=== PATIENT | male | born 1950 | race Caucasian/White ===

== ENCOUNTER → 2016-10-23 | Outpatient (CLI) | payer BC ==
[2016-10-23 15:32] LABS: CHLORIDE,CL 106 mmol/L (98-110); SODIUM,NA 140 mmol/L (136-146)
== END ==
LOC: MW.CHIM 14:37
PROVIDERS: ATTEND Internal Medicine
DX: M10.9 Gout, unspecified (principal); I10 Essential (primary) hypertension
CPT/HCPCS: 36415; 80053; 80061; 84550; 85025

== ENCOUNTER 2016-11-24 11:49 | Emergency (ER) | payer BC ==
--- NOTE | 2016-11-24 12:07 | EDM.PDOC ---
ED HPI Trauma - General Chief Complaint: Upper Extremity Injury/Pain Stated Complaint: LEFT HAND Time Seen by Provider: 11/24/16 11:51 - History of Present Illness INITIAL COMMENTS - FREE TEXT/NARRATIVE: HISTORY AND PHYSICAL: History of present illness: Patient 66-year-old male she is uncertain of left wrist pain he had this for several weeks it got worse over last 1-2 days with swelling he also is maximal pain with extension of his fourth and fifth digits. He denies any direct trauma or overuse that he can recall recently. He did suffer from carpal: A right wrist. Review of systems: As per history of present illness and below otherwise all systems reviewed and negative. Past medical history: As per history of present illness and as reviewed below otherwise noncontributory. Surgical history: As per history of present illness and as reviewed below otherwise noncontributory. Social history: No reported history of drug or alcohol abuse. Family history: As per history of present illness and as reviewed below otherwise noncontributory. Physical exam: HEENT: Atraumatic, normocephalic, pupils reactive, negative for conjunctival pallor or scleral icterus, mucous membranes moist, throat clear, neck supple, nontender, trachea midline. Lungs: Clear to auscultation, breath sounds equal bilaterally, chest nontender. Heart: S1S2, regular, negative for clicks, rubs, or JVD. Abdomen: Soft, nondistended, nontender. Negative for masses or hepatosplenomegaly. Negative for costovertebral tenderness. Pelvis: Stable nontender. Genitourinary: Deferred. Rectal: Deferred. Extremities: Left wrist has tenderness with small swelling noted over the volar aspect of the wrist there is tenderness to palpation over the flexor tendons he does so does have tenderness with extension of his third fourth and fifth digits neurovascular exam TMS are unremarkable Neuro: Awake, alert, oriented. Cranial nerves II through XII unremarkable. Cerebellum unremarkable. Motor and sensory unremarkable throughout. Exam nonfocal. Diagnostics: CBC uric acid x-ray left wrist Therapeutics: None Impression: #1 left wrist pain rule out tenosynovitis Definitive disposition and diagnosis as appropriate pending reevaluation and review of above. Allergies/ADRs: Allergies No Known Allergies Allergy (Verified 11/24/16 11:54) Home Medications: Ambulatory Orders Furosemide 20 mg PO DAILY 12/09/13 [Confirmed 11/24/16] Metoprolol Succinate 50 mg PO DAILY 12/09/13 [Confirmed 11/24/16] Multivitamin [Multivitamins] 1 each PO DAILY 12/09/13 [Confirmed 11/24/16] amLODIPine Besylate [Amlodipine Besylate] 5 mg PO DAILY 12/09/13 [Confirmed ] Acetaminophen/traMADol [Ultracet] 1 - 2 tab PO Q6H PRN #30 tab 12/10/13 [ Confirmed 11/24/16] Aspirin 81 mg PO DAILY 11/24/16 [Confirmed 11/24/16] Social & Family History - Tobacco Use Second Hand Smoke Exposure: No - Alcohol Use Days Per Week of Alcohol Use: 3 - Recreational Drug Use Recreational Drug Use: No Review of Systems - Review of Systems Review Of Systems: ROS reveals no pertinent complaints other than HPI. Trauma Exam - Physical Exam Exam: See Below (Dictation) Course - Vital Signs Text/Narrative:: X-ray was unremarkable uric as it was elevated at 8.9 clinical statement is not particularly strong for gouty arthritis but it remains a consideration he'll be discharged with diagnosis of rule out tenosynovitis versus gouty arthritis he is to followup with his private medical doctor one to 2 days to be given indomethacin to be taken as prescribed in a splint for comfort he is to return as needed as discussed Last Recorded V/S: Last Vital Signs Temp 37.3 C 11/24/16 11:59 Pulse 89 11/24/16 11:59 Resp 18 11/24/16 11:59 BP 153/84 H 11/24/16 11:59 Pulse Ox 95 11/24/16 11:59 - Orders/Labs/Meds Orders: Active Orders 24 hr Category Date Time Status Wrist 2V Lt [CR] Stat Exams 11/24/16 12:03 Taken Labs: Laboratory Tests 11/24/16 11/24/16 Range/Units 12:10 12:10 WBC 8.63 (4.0-11.0) K/uL RBC 4.36 L (4.50-5.90) M/uL Hgb 14.2 (13.0-17.0) g/dL Hct 41.6 (38.0-50.0) % MCV 95.4 (80.0-98.0) fL MCH 32.6 H (27.0-32.0) pg MCHC 34.1 (31.0-37.0) g/dL RDW Std Deviation 43.9 (28.0-62.0) fl RDW Coeff of Brandy 13 (11.0-15.0) % Plt Count 225 (150-400) K/uL MPV 9.90 (7.40-12.00) fL Neut % (Auto) 64.2 (48.0-80.0) % Lymph % (Auto) 21.9 (16.0-40.0) % [place] % (Auto) 11.2 (0.0-15.0) % Eos % (Auto) 2.4 (0.0-7.0) % Baso % (Auto) 0.3 (0.0-1.5) % Neut # (Auto) 5.5 (1.4-5.7) K/uL Lymph # (Auto) 1.9 (0.6-2.4) K/uL [place] # (Auto) 1.0 H (0.0-0.8) K/uL Eos # (Auto) 0.2 (0.0-0.7) K/uL Baso # (Auto) 0.0 (0.0-0.1) K/uL Nucleated RBC % 0.0 /100WBC Nucleated RBCs # 0 K/uL Uric Acid 8.9 H (2.1-7.4) mg/dL Departure - Departure Time of Disposition: 12:47 Disposition: Home, Self-Care 01 Condition: good Clinical Impression: Wrist pain, Elevated blood uric acid level Forms: ED Department Discharge Additional Instructions: The following information is given to patients seen in the emergency department who are being discharged to home. This information is to outline your options for follow-up care. We provide all patients seen in our emergency department with a follow-up referral. The need for follow-up, as well as the timing and circumstances, are variable depending upon the specifics of your emergency department visit. If you don't have a primary care physician on staff, we will provide you with a referral. We always advise you to contact your personal physician following an emergency department visit to inform them of the circumstance of the visit and for follow-up with them and/or the need for any referrals to a consulting specialist. The emergency department will also refer you to a specialist when appropriate. This referral assures that you have the opportunity for followup care with a specialist. All of these measure are taken in an effort to provide you with optimal care, which includes your followup. Under all circumstances we always encourage you to contact your private physician who remains a resource for coordinating your care. When calling for followup care, please make the office aware that this follow-up is from your recent emergency room visit. If for any reason you are refused follow-up, please contact the [facility] emergency department at and asked to speak to the emergency department charge nurse. [facility] specialty [facility]Pl[facility] [address] [place] [id number] Indomethacin as prescribed follow up primary medical doctor call to schedule appointment with hand surgeon above return as needed as discussed splint as directed - My Orders Last 24 Hours: My Active Orders 11/24/16 12:03 Wrist 2V Lt [CR] Stat - Assessment/Plan Last 24 Hours: My Active Orders 11/24/16 12:03 Wrist 2V Lt [CR] Stat
[2016-11-24 13:06] VITALS: BP 148/73
--- NOTE | 2016-11-25 18:02 | CR ---
EXAM DATE: 11/24/16 PATIENT'S AGE: 66 Patient: MILE NOEL Facility: [place], [place] Site . Site : 1950 Study: XRay Extremity Left [id number]/[id number] 12:15:25 PM Ordering Physician: Sarbjit Simon Final Report: INDICATION: Pain and swelling. Technique: Two views of the left wrist. Findings: No acute fracture or dislocation. Joint spaces are maintained. Soft tissues are unremarkable. Impression: Negative left wrist. Dictated by Felisa Amato MD @ Nov 24 2016 12:26PM (Electronic Signature) Report Signed by Proxy. MAHENDRA
== END 2016-11-24 13:00 | disposition home or self-care (01) ==
LOC: MW.ED 11:49
DX: M25.532 Pain in left wrist (principal); E79.0 Hyperuricemia without signs of inflammatory arthritis and tophaceous disease; Z79.899 Other long term (current) drug therapy
CPT/HCPCS: 36415; 73100-26-LT; 73100-LT; 84550; 85025; 99283

== ENCOUNTER 2024-05-17 14:47 | Emergency (ER) | payer MEDICARE, OTHER ==
[2024-05-17 15:01] LABS: BASOPHILS ABSOLUTE AUTO 0.08 K/uL (0.00-0.20); BASOPHILS PERCENT AUTO 0.6 % (0.0-1.0); EOSINOPHILS ABSOLUTE AUTO 0.09 K/uL (0.00-0.45); EOSINOPHILS PERCENT AUTO 0.7 % (0.0-6.0); HEMOGLOBIN 15.3 g/dL (14.0-18.0); IMMATURE GRAN ABSOLUTE AUTO 0.03 K/uL (0.00-0.05); IMMATURE GRAN PERCENT AUTO 0.2 % (0.0-0.4); LYMPHOCYTES ABSOLUTE AUTO 2.74 K/uL (1.00-4.80); LYMPHOCYTES PERCENT AUTO 21.2 % (24.0-44.0); MEAN CORPUSCULAR HEMOGLOBIN 32.6 pg (28.0-32.0); MEAN CORPUSCULAR VOLUME 95.7 fL (83.0-99.0); MEAN PLATELET VOLUME 10.6 fL (9.4-12.4); MONOCYTES PERCENT AUTO 10.9 % (0.0-8.0); NEUTROPHILS ABSOLUTE AUTO 8.56 K/uL (1.80-7.70); NEUTROPHILS PERCENT AUTO 66.4 % (41.0-71.0); PLATELET COUNT,PLT 248 K/uL (150-400)
[2024-05-17 15:13] LABS: INR 1.1 (0.86-1.11)
[2024-05-17 15:14] LABS: A/G RATIO 0.8 (0.9-1.6); ALANINE AMINOTRANSFERASE,ALT 96 IU/L (14-63); ALBUMIN 4.3 g/dL (3.4-5.0); ALKALINE PHOSPHATASE 78 U/L (46-116); ASPARTATE AMNIOTRANSFERASE,AST 109 IU/L (15-37); BILIRUBIN TOTAL 1.7 mg/dL (0.2-1.0); BLOOD UREA NITROGEN,BUN 53 mg/dL (7.0-18.0); CALCIUM 10.4 mg/dL (8.5-10.1); CARBON DIOXIDE,CO2 26.6 mmol/L (21.0-32.0); CHLORIDE,CL 109 mmol/L (98-107); CREATININE 1.9 mg/dL (0.8-1.3); ETHANOL BLOOD MEDICAL <3 mg/dL; GLUCOSE RANDOM 101 mg/dL (74-106); POTASSIUM,K 4.3 mmol/L (3.5-5.1); PROTEIN TOTAL,TP 9.6 g/dL (6.4-8.2); SODIUM,NA 152 mmol/L (136-148)
[2024-05-17] MEDS: Iopamidol 755 MG/ML 500 ML Multipack Bottle IVPUSH STA (15:16)
[2024-05-17 15:17] LABS: ESTIMATED GFR 37 mL/min (>60)
[2024-05-17 15:39] LABS: BASOPHILS ABSOLUTE AUTO 0.07 K/uL (0.00-0.20); BASOPHILS PERCENT AUTO 0.6 % (0.0-1.0); EOSINOPHILS ABSOLUTE AUTO 0.11 K/uL (0.00-0.45); EOSINOPHILS PERCENT AUTO 0.9 % (0.0-6.0); HEMOGLOBIN 14.2 g/dL (14.0-18.0); IMMATURE GRAN ABSOLUTE AUTO 0.04 K/uL (0.00-0.05); IMMATURE GRAN PERCENT AUTO 0.3 % (0.0-0.4); LYMPHOCYTES ABSOLUTE AUTO 1.98 K/uL (1.00-4.80); MEAN CORPUSCULAR HEMOGLOBIN 32.1 pg (28.0-32.0); MEAN CORPUSCULAR VOLUME 97.1 fL (83.0-99.0); MONOCYTES ABSOLUTE AUTO 1.25 K/uL (0.00-0.80); MONOCYTES PERCENT AUTO 10.8 % (0.0-8.0); NEUTROPHILS ABSOLUTE AUTO 8.17 K/uL (1.80-7.70); NEUTROPHILS PERCENT AUTO 70.4 % (41.0-71.0); PLATELET COUNT,PLT 202 K/uL (150-400); RED BLOOD CELL COUNT 4.43 M/uL (4.52-5.90); WHITE BLOOD CELL COUNT,WBC 11.62 K/uL (3.9-11.3)
[2024-05-17 16:10] LABS: A/G RATIO 0.8 (0.9-1.6); ALBUMIN 3.9 g/dL (3.4-5.0); BILIRUBIN TOTAL 1.6 mg/dL (0.2-1.0); CALCIUM 10.1 mg/dL (8.5-10.1); CARBON DIOXIDE,CO2 24.5 mmol/L (21.0-32.0); CREATININE 1.8 mg/dL (0.8-1.3); EST CRCL DRUG DOSING (CG) 37.1 mL/min; PROTEIN TOTAL,TP 8.7 g/dL (6.4-8.2)
[2024-05-17] MEDS ORDERED: Sodium Chloride 0.9% 500 ML IV SCH (16:15)
[2024-05-17] MEDS: Aspirin 81 MG Tab.Chew PO ONE (16:21)
[2024-05-17] MEDS: Sodium Chloride 0.9% 10 ML Syringe FLUSH PRN (16:22)
[2024-05-17] MEDS: Sodium Chloride 0.9% 2.5 ML Syringe FLUSH PRN (16:22)
[2024-05-18 00:09] VITALS: BP 144/83; PULSE 100
== END 2024-05-17 19:20 ==
LOC: MW.ED 14:47
DX: I63.9 Cerebral infarction, unspecified (principal); R79.89 Other specified abnormal findings of blood chemistry; I10 Essential (primary) hypertension; E66.9 Obesity, unspecified; Z68.33 Body mass index [BMI] 33.0-33.9, adult; Z79.82 Long term (current) use of aspirin; Z79.899 Other long term (current) drug therapy
CPT/HCPCS: 36415; 70450; 70496; 70498; 71045; 80053; 80307; 84484; 85025; 85610; 93005; 99285; A9270; J3490; Q9967